=== PATIENT | female | born 1935 | race Two or more races ===

== ENCOUNTER 2023-07-31 18:13 | Emergency (ER) | payer OTHER ==
[~2023-07-31] VITALS: Ht 154.9 cm; Wt 59.1 kg
[2023-07-31] MEDS ORDERED: 0.9% SODIUM CHLORIDE 10 ML SYRINGE IVP PRN (18:30)
[2023-07-31] MEDS ORDERED: SODIUM CHLORIDE 0.9% 1,000 ML IV ONE (18:30)
[2023-07-31] MEDS ORDERED: BRIM5DRO9 OU (18:49)
[2023-07-31] MEDS ORDERED: XALA2.5OS OU (18:49)
[2023-07-31] MEDS ORDERED: LISI-894 PO (18:49)
[2023-07-31] MEDS ORDERED: NIFE-141 PO (18:49)
[2023-07-31] MEDS ORDERED: MELA5TAB40 PO (18:49)
[2023-07-31] MEDS ORDERED: ISOS60TA77 PO (18:49)
[2023-07-31] MEDS ORDERED: RISP0.5T66 PO ×2 (18:49)
[2023-07-31] MEDS ORDERED: ATOR20TA PO (18:49)
[2023-07-31] MEDS ORDERED: TRAZ-252 PO (18:49)
[2023-07-31 19:00] LABS: BASOPHILS % (AUTO) 0.3 % (0.0-2.0); EOSINOPHILS % (AUTO) 1.2 % (1.0-6.0); HEMATOCRIT 28.9 % (36-46); HEMOGLOBIN 9.8 g/dL (12.0-16.0); LYMPHOCYTES # (AUTO) 1.4 K/uL (1.0-4.8); LYMPHOCYTES % (AUTO) 17.5 % (22.0-44.0); MEAN CORPUSCULAR HEMOGLOBIN 29.7 pg (26.0-34.0); MEAN CORPUSCULAR HGB CONC 33.8 G/dL (31.0-37.0); MEAN CORPUSCULAR VOLUME 88 fL (80-100); MONOCYTES # (AUTO) 0.7 K/uL (0.1-1.0); NEUTROPHILS # (AUTO) 5.6 K/uL (1.8-7.7); PLATELET COUNT (AUTO) 198 K/uL (150-450); RED BLOOD CELL COUNT(AUTO) 3.29 MIL/uL (4.00-5.20); RED CELL DISTRIBUTION WIDTH 14.8 % (11.5-14.5); WHITE BLOOD COUNT (AUTO) 7.7 K/uL (4.5-11.0)
[2023-07-31 19:04] LABS: ANION GAP 14 mmol/L (8-16); CALCIUM, TOTAL 8.6 mg/dL (8.8-10.5); CARBON DIOXIDE 23 mmol/L (22-29); CHLORIDE 101 mmol/L (98-107); CREATININE 1.73 mg/dL (0.60-1.30); GLOMERULAR FILTR. RATE CALC 28 mL/min (>60); GLUCOSE,RANDOM 130 mg/dL (70-110); POTASSIUM 4.1 mmol/L (3.5-5.1); SODIUM SERUM 138 mmol/L (136-145); UREA NITROGEN, BLOOD 46 mg/dL (7-18)
[2023-07-31 19:10] LABS: ALANINE AMINOTRANSFERASE 19 U/L (12-78); ALBUMIN 3.4 g/dL (3.4-5.0); ALKALINE PHOSPHATASE 99 U/L (46-116); ASPARTATE AMINOTRANSFERASE 28 U/L (15-37); BILIRUBIN,TOTAL 0.3 mg/dL (0.1-1.0); INR 1.1 (0.9-1.1); TOTAL PROTEIN, SERUM 7.3 g/dL (6.4-8.2)
[2023-07-31 19:16] LABS: TROPONIN I-HIGH SENSITIVITY 52 ng/L (<51)
[2023-07-31 19:21] LABS: B-TYPE NATRIURETIC PEPTIDE 295 pg/mL (0-100)
[2023-07-31 19:39] LABS: INFLUENZA A-RTPCR,COMBO NEGATIVE (NEGATIVE); INFLUENZA B-RTPCR,COMBO NEGATIVE (NEGATIVE); RESPIRATORY SYNCYTIAL VRS-PCR NEGATIVE (NEGATIVE); SARS COVID19 RTPCR, COMBO NEGATIVE (NEGATIVE)
[2023-07-31 21:33] LABS: TROPONIN I-HIGH SENSITIVITY 48 ng/L (<51)
[2023-07-31] MEDS ORDERED: CloNIDine HCL 0.1 MG TABLET PO ONE (22:00)
[2023-07-31 22:12] VITALS: TEMP 99
[2023-08-01] VITALS: BP 204/111; PULSE 75; RESP 24
[2023-08-01] MEDS ORDERED: HydrALAZINE HCL 20 MG/ML VIAL IVP ONE (00:15)
== END 2023-08-01 | disposition short-term general hospital (02) ==
LOC: EMS 18:13
DX: I95.9 Hypotension, unspecified (principal); R09.89 Other specified symptoms and signs involving the circulatory and respiratory systems; F03.90 Unspecified dementia, unspecified severity, without behavioral disturbance, psychotic disturbance, mood disturbance, and anxiety; R55 Syncope and collapse; F41.9 Anxiety disorder, unspecified; F32.A Depression, unspecified; E11.9 Type 2 diabetes mellitus without complications; E78.00 Pure hypercholesterolemia, unspecified; I25.10 Atherosclerotic heart disease of native coronary artery without angina pectoris; I10 Essential (primary) hypertension; Z20.822 Contact with and (suspected) exposure to COVID-19
CPT/HCPCS: 99285; 70450; 0241U; 71045; 96361; 80053; 82962; 83605; 83880; 84484; 85025; 85610; 85730; 87040; 36415; 71250; 74176; 93005; 84145; 96374; J7030; J0360; 72192; 74150